=== PATIENT | male | born 1980 | race African-American/Black ===

== ENCOUNTER 2021-10-01 14:20 | Emergency (ER) | payer MEDICAID ==
[~2021-10-01] VITALS: Ht 175.3 cm; Wt 85.0 kg
[2021-10-01 15:19] VITALS: BP 143/76
[2021-10-01] MEDS ORDERED: HALOPERIDOL LACTATE 5MG/ML VIAL IM ONE (16:30)
[2021-10-01] MEDS ORDERED: MIDAZOLAM HCL 2 MG/2 ML VIAL IM ONE (16:30)
== END 2021-10-01 17:02 | disposition home or self-care (01) ==
LOC: ER 14:20
DX: R46.2 Strange and inexplicable behavior (principal)
CPT/HCPCS: 82962; 99283; J2250; J1630